=== PATIENT | male | born 1945 | race Caucasian/White ===

== ENCOUNTER 2018-07-26 19:05 | Observation (INO) ==
[2018-07-26] MEDS ORDERED: MethylPREDNISolone Sod Succinate Inj 125 MG/2 ML Vial IV.PUSH ONE (19:12)
[2018-07-26 19:31] LABS: Baso # (Auto) 0.1 th/mm3 (0.0-0.2); Baso % (Auto) 1.7 % (0.0-2.0); Eos # (Auto) 0.3 th/mm3 (0.0-0.4); Eos % (Auto) 6.3 % (0.0-4.0); Hematocrit 38.2 % (39.0-51.0); Lymph % (Auto) 18.1 % (9.0-44.0); Mean Corpuscular HGB Conc 34.1 % (32.0-36.0); Mean Corpuscular Hemoglobin 34.4 pg (27.0-34.0); Mean Corpuscular Volume 100.9 fL (80.0-100.0); Mean Platelet Volume 9.5 fL (7.0-11.0); Mono # (Auto) 0.2 th/mm3 (0.0-0.9); Mono % (Auto) 3.8 % (0.0-8.0); Neut # (Auto) 3.8 th/mm3 (1.8-7.7); Neut % (Auto) 70.1 % (16.0-70.0); Platelet Count 173 th/mm3 (150-450); Red Blood Count 3.78 mil/mm3 (4.50-5.90); Red Cell Distribution Width 12.8 % (11.6-17.2); White Blood Count 5.4 th/mm3 (4.0-11.0)
--- NOTE | 2018-07-26 19:33 | XR ---
EXAM DATE: 07/26/2018 7:28 PM EST AGE/SEX: 72 years / Male INDICATIONS: Dyspnea. CLINICAL DATA: This is the patient's sequela encounter. Patient reports that signs and symptoms have been present for 3 days and indicates a pain score of 2/10. MEDICAL/SURGICAL HISTORY: . Chronic obstructive pulmonary disease. Carcinoma, prostatic. None. COMPARISON: [facility], CHEST 2V PA&LAT, 07/25/2018. . FINDINGS: Single AP view of the chest. The lungs are clear. Cardiomediastinal silhouette within nor mal limits. No evidence of pleural effusion or pneumothorax. CONCLUSION: No acute cardiopulmonary disease identified. Electronically signed by: Isac Zafar MD Board Certified Radiologist 07/26/2018 7:31 PM EST
[2018-07-26 19:38] LABS: Chloride 106 meq/L (98-107); Potassium 3.6 meq/L (3.5-5.1); Sodium 139 meq/L (136-145)
[2018-07-26 19:41] LABS: Calcium 8.2 mg/dL (8.5-10.1)
[2018-07-26 19:42] LABS: Albumin 3.5 g/dL (3.4-5.0); Anion Gap 6 meq/L (5-15); Blood Urea Nitrogen 16 mg/dL (7-18); Carbon Dioxide 26.9 meq/L (21.0-32.0); Glucose,Random 127 mg/dL (74-106)
[2018-07-26 19:45] LABS: Alanine Aminotransferase 24 U/L (12-78); Aspartate Aminotransferase 19 U/L (15-37); Glomerular Filtration Rate Greater Than 89 mL/min (>89)
[2018-07-26 19:47] LABS: Total Protein 6.9 g/dL (6.4-8.2)
[2018-07-26 19:48] LABS: Alkaline Phosphatase 89 U/L (45-117)
[2018-07-26] MEDS ORDERED: Famotidine PF Inj 20 MG/2 ML Vial IV.PUSH ONE (20:00)
[2018-07-26 20:15] VITALS: RESP 20
--- NOTE | 2018-07-26 20:17 | ED ---
HPI General Chief complaint: Respiratory Symptoms Stated complaint: SOB Time Seen by Provider: 07/26/18 19:10 Source: patient, family, EMS, RN notes reviewed and old records reviewed Mode of arrival: EMS Limitations: physical limitation History of Present Illness HPI narrative: 72-year-old male presents emerged from complaining of shortness of breath, worse over the past 2 days, associated with pruritic urticarial rash , history of COPD. Some cough but nonproductive. No fevers. Well before the onset of the symptoms. Was in the emergency department yesterday, was treated for COPD exacerbation, worsening symptoms today. Symptoms are moderately severe , persistent, unrelieved despite outpatient treatment. Related Data Home Medications Medication Instructions Recorded Confirmed Vantas 07/25/18 07/25/18 albuterol sulfate 1 dose INHALATION Q6HR PRN 07/25/18 07/26/18 albuterol sulfate [Ventolin HFA] 2 puff INHALATION BID 07/25/18 07/26/18 azelastine 1 spray INTRANASAL Q12H 07/25/18 07/26/18 budesonide-formoterol [Symbicort] 2 puff INHALATION BID 07/25/18 07/26/18 cyanocobalamin (vitamin B-12) 07/25/18 07/25/18 [Vitamin B-12] fexofenadine [Guerita Allergy] 1 tab PO DAILY 07/25/18 07/26/18 fluticasone 2 spray INTRANASAL HS 07/25/18 07/26/18 ipratropium bromide 1 dose INHALATION Q6H PRN 07/25/18 07/26/18 omeprazole 1 cap PO DAILY 07/25/18 07/26/18 Nyquil 07/26/18 diphenhydramine HCl [Benadryl] 25 mg PO Q4H PRN 07/26/18 07/26/18 guaifenesin [Mucinex] 600 mg PO Q12H PRN 07/26/18 07/26/18 Previous Rx's Medication Instructions Recorded triamcinolone acetonide 1 applic TOPICAL BID #30 g 07/25/18 Allergies Allergy/AdvReac Type Severity Reaction Status Date / Time Iodinated Contrast- Oral and Allergy Mild unknwon Verified 07/26/18 19:22 IV Dye Review of Systems ROS: all other systems reviewed are negative [facility] Medical History Medical History COPD (chronic obstructive pulmonary disease) (Acute) Hemorrhoids (Acute) Prostate cancer (Acute) Surgical History Surgical History History of appendectomy (Acute) Social History Social History Substance History: No History of Abuse Second Hand Smoke Exposure: No Smoking Status: Former smoker How Often Do You Have a Drink Containing Alcohol: 4 or more times a week Immunization History Tetanus Immunization: Unsure Exam Narrative Exam Narrative: GENERAL: 72-year-old man, moderate respiratory distress, speaks in 2-3 word sentences, anxious appearing. SKIN: Focused skin assessment warm/dry. Blanching urticarial rash coalescing on the trunk, extremities, back. HEAD: Atraumatic. Normocephalic. EYES: Pupils equal and round. No scleral icterus. No injection or drainage. ENT: No nasal bleeding or discharge. Mucous membranes pink and moist. NECK: Trachea midline. No JVD. CARDIOVASCULAR: Regular rate and rhythm. No murmur appreciated. RESPIRATORY: Moderate respiratory distress. Accessory muscle use. Moderate diffuse wheezing. Good air movement. GASTROINTESTINAL: Abdomen soft, non-tender, nondistended. Hepatic and splenic margins not palpable. MUSCULOSKELETAL: No obvious deformities. No edema. NEUROLOGICAL: Awake and alert. No obvious cranial nerve deficits. Motor grossly within normal limits. Normal speech. PSYCHIATRIC: Anxious appearing. Course Initial Documented Vital Signs Pulse Oximetry 95 07/26/18 19:10 Last Documented Vital Signs Pulse Rate 77 07/26/18 20:41 Respiratory Rate 20 07/26/18 20:41 Blood Pressure 142/90 H 07/26/18 20:41 Pulse Oximetry 98 07/26/18 20:41 Medical Decision Making MDM Narrative Medical decision making narrative: 72-year-old man, presents emerge department with respiratory distress wheezing and urticarial rash. Likely COPD exacerbation triggered by allergic reaction, but circumstances are a little bit unclear. Rash was worsening, given the respiratory distress was moderate, we did make the decision to give him a dose of epinephrine, continue antihistamines. He was given steroids and bronchodilators. He will also be given dose of antibiotics. We will plan on admission to the hospital. Medical Screen Exam Complete: Yes Emergency Medical Condition: Yes Lab Data Lab results reviewed: Yes I reviewed the patient's lab results. Result diagrams: 07/26/18 19:15 07/26/18 19:15 Lab Results 07/26/18 07/26/18 07/26/18 Range/Units 19:15 19:15 19:15 CBC w Diff Auto diff final WBC 5.4 (4.0-11.0) th/mm3 RBC 3.78 L (4.50-5.90) mil/mm3 Hgb 13.0 (13.0-17.0) gm/dL Hct 38.2 L (39.0-51.0) % MCV 100.9 H (80.0-100.0) fL MCH 34.4 H (27.0-34.0) pg MCHC 34.1 (32.0-36.0) % RDW 12.8 (11.6-17.2) % Plt Count 173 (150-450) th/mm3 MPV 9.5 (7.0-11.0) fL Neut % (Auto) 70.1 H (16.0-70.0) % Lymph % (Auto) 18.1 (9.0-44.0) % [place] % (Auto) 3.8 (0.0-8.0) % Eos % (Auto) 6.3 H (0.0-4.0) % Baso % (Auto) 1.7 (0.0-2.0) % Neut # (Auto) 3.8 (1.8-7.7) th/mm3 Lymph # (Auto) 1.0 (1.0-4.8) th/mm3 [place] # (Auto) 0.2 (0.0-0.9) th/mm3 Eos # (Auto) 0.3 (0.0-0.4) th/mm3 Baso # (Auto) 0.1 (0.0-0.2) th/mm3 WBC Differential . Differential Comment . Sodium 139 (136-145) meq/L Potassium 3.6 (3.5-5.1) meq/L Chloride 106 (98-107) meq/L Carbon Dioxide 26.9 (21.0-32.0) meq/L Anion Gap 6 (5-15) meq/L BUN 16 (7-18) mg/dL Creatinine 0.83 (0.60-1.30) mg/dL Estimated GFR Greater than 89 (>89) mL/min Random Glucose 127 H (74-106) mg/dL Calcium 8.2 L (8.5-10.1) mg/dL Total Bilirubin 0.5 (0.2-1.0) mg/dL AST 19 (15-37) U/L ALT 24 (12-78) U/L Alkaline Phosphatase 89 (45-117) U/L Troponin I Less than 0.02 L (0.02-0.05) ng/mL B-Natriuretic Peptide 79 (0-100) pg/mL Total Protein 6.9 (6.4-8.2) g/dL Albumin 3.5 (3.4-5.0) g/dL Imaging Data Radiologist's impression: Chest X-Ray 07/26/18 19:12 CONCLUSION: No acute cardiopulmonary disease identified. Negative. ECG Data Attestation: I personally reviewed and interpreted this ECG as follows: Discharge Plan Discharge Disposition Patient Disposition: ED Admit(ED Internal Use Only) Discharge Order Discharge Orders: ED Use Only Admit Order (Routine); Ordered 07/26/18 Ordered By: Dionisio Johansen Physicians Team ED Provider: Dionisio Johansen Primary Care Provider: Jose Howard Attending Provider: Miriam Ignacio Discharge Interventions Interventions: Vital Signs Last Done: 07/26/18 20:14 Status ED Status: Admitted Observation Patient
[2018-07-26] MEDS ORDERED: Bisacodyl 10 MG Supp RECTAL PRN (20:32)
[2018-07-26] MEDS ORDERED: Acetaminophen 325 MG Tablet PO PRN (20:32)
[2018-07-26] MEDS: Senna/Docusate Sodium 8.6/50 MG Tablet PO SCH (23:53)
[2018-07-26] MEDS: guaiFENesin 600 MG ER Tablet PO SCH (23:53)
[2018-07-26] MEDS: Budesonide-Formoterol 160/4.5 MCG 6 GM Inhaler INH SCH (23:54)
[2018-07-27] MEDS: MethylPREDNISolone Sod Succinate Inj 40 MG/ML Vial IV.PUSH SCH ×4 (00:30→15:56)
[2018-07-27 06:56] LABS: Baso % (Auto) 0.3 % (0.0-2.0); Hematocrit 38.1 % (39.0-51.0); Hemoglobin 12.7 gm/dL (13.0-17.0); Lymph # (Auto) 0.3 th/mm3 (1.0-4.8); Lymph % (Auto) 8.1 % (9.0-44.0); Mean Corpuscular HGB Conc 33.4 % (32.0-36.0); Mean Corpuscular Hemoglobin 34.5 pg (27.0-34.0); Mean Corpuscular Volume 103.2 fL (80.0-100.0); Mean Platelet Volume 9.8 fL (7.0-11.0); Mono % (Auto) 0.3 % (0.0-8.0); Neut # (Auto) 3.6 th/mm3 (1.8-7.7); Neut % (Auto) 91.3 % (16.0-70.0); Platelet Count 157 th/mm3 (150-450); Red Blood Count 3.69 mil/mm3 (4.50-5.90); Red Cell Distribution Width 13.3 % (11.6-17.2); White Blood Count 3.9 th/mm3 (4.0-11.0)
[2018-07-27 07:00] LABS: Chloride 104 meq/L (98-107); Sodium 138 meq/L (136-145)
[2018-07-27 07:07] LABS: Calcium 8.7 mg/dL (8.5-10.1)
[2018-07-27 07:08] LABS: Albumin 3.4 g/dL (3.4-5.0); Anion Gap 11 meq/L (5-15); Blood Urea Nitrogen 13 mg/dL (7-18); Carbon Dioxide 23.1 meq/L (21.0-32.0); Glucose,Random 225 mg/dL (74-106)
[2018-07-27 07:11] LABS: Alanine Aminotransferase 22 U/L (12-78); Aspartate Aminotransferase 12 U/L (15-37); Glomerular Filtration Rate 75 mL/min (>89)
[2018-07-27 07:12] LABS: Total Protein 6.9 g/dL (6.4-8.2)
[2018-07-27 07:14] LABS: Alkaline Phosphatase 82 U/L (45-117)
[2018-07-27] MEDS: Budesonide-Formoterol 160/4.5 MCG 6 GM Inhaler INH SCH (09:01)
[2018-07-27] MEDS: Senna/Docusate Sodium 8.6/50 MG Tablet PO SCH (09:02)
[2018-07-27] MEDS: guaiFENesin 600 MG ER Tablet PO SCH (09:03)
--- NOTE | 2018-07-27 13:12 | P.HPIM ---
History of Present Illness Primary Care Physician: Jose Howard MD Chief Complaint: Shortness of breath, wheeze History of Present Illness: 72-year-old male with known history of chronic obstructive pulmonary disease who presented to the hospital for evaluation of continued shortness of breath, dyspnea. Patient states that his symptoms started roughly 4 days ago after he was going up and down into the attic putting his Sherron decorations away. Shortly after that he started having significant shortness of breath, wheeze, rash. He was using his nebulizer and Symbicort at home. Indicates that he is using his Symbicort more than it was directed. His breathing did not improve so he came to the emergency department on 07/25/18 and was evaluated that approximate 11:30 in the morning. Patient was taken care of by the ER physician and the patient was given Benadryl 25 mg IV, workup was unremarkable. It was indicated that the patient was reevaluated and he stated that he is ready to go home. He is instructed to use Benadryl 25-50 mg [id number] as needed and triamcinolone cream. The patient did go home and he indicates that he was very tired after the Benadryl and he went to bed that night and did not wake up until the afternoon. The patient got up to try to get some eat but started having shortness of breath, dyspnea, rash again so he came back to the emergency department at approximately 8 PM last night. Patient was given Solu- Medrol, bronchodilators and dose of antibiotics emergency department and ER physician recommended that the patient be admitted to the hospital for further evaluation and management. Upon seeing the patient's morning he is sitting up in bed, he does not require any oxygen, he denies any wheezing or any shortness of breath. States that the rash is almost completely resolved. Patient denies any chest pain, cough, congestion, dyspnea, abdominal pain, nausea, vomiting. Review of Systems Review of Systems: all other systems reviewed are negative Respiratory: Reports wheezing Skin/Breast: Reports change in pigmentation and Reports pruritus PMFSH Medical History Medical History COPD (chronic obstructive pulmonary disease) (Acute) Hemorrhoids (Acute) Prostate cancer (Acute) Surgical History Surgical History History of hernia repair (Acute) History of appendectomy (Acute) Social History Social History Substance History: No History of Abuse Second Hand Smoke Exposure: No Smoking Status: Former smoker Number of Pack-Years (if former smoker): 10 How Often Do You Have a Drink Containing Alcohol: Monthly or less Immunization History Tetanus Immunization: Unsure Medications and Allergies Allergies Allergy/AdvReac Type Severity Reaction Status Date / Time Iodinated Contrast- Oral and Allergy Mild unknwon Verified 07/26/18 19:22 IV Dye Home Medications Medication Instructions Recorded Confirmed Type Vantas 07/25/18 07/25/18 History albuterol sulfate 1 dose INHALATION Q6HR PRN 07/25/18 07/26/18 History albuterol sulfate [Ventolin HFA] 2 puff INHALATION BID 07/25/18 07/26/18 History azelastine 1 spray INTRANASAL Q12H 07/25/18 07/26/18 History budesonide-formoterol [Symbicort] 2 puff INHALATION BID 07/25/18 07/26/18 History cyanocobalamin (vitamin B-12) 07/25/18 07/25/18 History [Vitamin B-12] fexofenadine [Guerita Allergy] 1 tab PO DAILY 07/25/18 07/26/18 History fluticasone 2 spray INTRANASAL HS 07/25/18 07/26/18 History ipratropium bromide 1 dose INHALATION Q6H PRN 07/25/18 07/26/18 History omeprazole 1 cap PO DAILY 07/25/18 07/26/18 History Nyquil 07/26/18 History diphenhydramine HCl [Benadryl] 25 mg PO Q4H PRN 07/26/18 07/26/18 History guaifenesin [Mucinex] 600 mg PO Q12H PRN 07/26/18 07/26/18 History Active Medications: Active Medications Acetaminophen (Tylenol) 650 mg PO Q4H PRN PRN Reason: Temp > 100.4 Al Hydroxide/Mg Hydroxide (Milk Of Magnesia Liq) 30 ml PO Q12H PRN PRN Reason: Mild Constipation Albuterol (Duoneb Neb (Prn)) 1 ampul NEB Q4HR NEB PRN PRN Reason: SOB/WHEEZING Last Admin: 07/27/18 09:36 Dose: 1 ampul Bisacodyl (Dulcolax Supp) 10 mg RECTAL DAILY PRN PRN Reason: SEVERE CONSITIPATION Budesonide/Formoterol Fumarate (Symbicort 160/4.5 Mcg Inh) 2 puff INH BID [facility] Last Admin: 07/27/18 09:01 Dose: Not Given Diphenhydramine HCl (Benadryl Inj) 25 mg IV.PUSH Q4H PRN PRN Reason: ITCHING/RASH Last Admin: 07/27/18 10:27 Dose: 25 mg Guaifenesin (Mucinex Er) 600 mg PO BID [facility] Last Admin: 07/27/18 09:03 Dose: 600 mg Lactulose (Lactulose Liq) 30 ml PO DAILY PRN PRN Reason: SEVERE CONSITIPATION Methylprednisolone Sodium Succinate (Solumedrol Inj) 40 mg IV.PUSH Q6H [facility] Last Admin: 07/27/18 10:27 Dose: 40 mg Ondansetron HCl (Zofran Inj) 4 mg IV.PUSH Q6H PRN PRN Reason: NAUSEA OR VOMITING Senna/Docusate Sodium (Roxann-Colace) 1 tab PO BID [facility] Last Admin: 07/27/18 09:02 Dose: Not Given Sennosides (Senokot) 17.2 mg PO Q12H PRN PRN Reason: Moderate Constipation Sodium Chloride (Ns Flush) 2 ml IV.FLUSH BID [facility] Last Admin: 07/27/18 09:03 Dose: 2 ml Sodium Chloride (Ns Flush) 2 ml IV.FLUSH PRN PRN PRN Reason: FLUSH AFTER USING IV ACCESS Physical Exam Vital signs: Last Vital Signs Temp 96.8 F L 07/27/18 08:00 Pulse 83 07/27/18 08:00 Resp 20 07/27/18 08:00 BP 179/98 H 07/27/18 08:00 Pulse Ox 93 L 07/27/18 08:00 Intake & Output 07/25/18 07/26/18 07/27/18 07/28/18 06:59 06:59 06:59 06:59 Intake Total 360 / 360 Balance 360 / 360 Weight 72.3 kg Narrative: GENERAL: Well-developed, well-nourished, in no acute distress. alert and orientated HEENT: Head is normocephalic without any lesions or masses noted. Facial features are symmetric. Eyes: Pupils equal round reactive to light. Extraocular muscles are intact. Conjunctivae were clear. Oropharyngeal: Pharynx without any erythema edema. Tongue is midline without deviation. Buccal mucosa is moist without any masses or lesions NECK: Supple without any masses. Trachea midline no deviation. No JVD, no bruits are appreciated CARDIAC: Regular rhythm, regular rate. S1/S2 are heard. No murmurs gallops or rubs. LUNGS: Clear to auscultation bilaterally. No wheeze, rhonchi or rales. No use of accessory muscles on inspiration or expiration. ABDOMEN: Soft, nontender. Nondistended. Bowel sounds heard in all 4 quadrants. No organomegaly or masses. Negative rebound, negative guarding EXTREMITIES: No edema, pulses are equal bilaterally. No cyanosis or clubbing NEUROLOGY: Mood and affect appear appropriate. Cranial nerves II through XII grossly intact. Muscle strength 5/5 in upper and lower extremities bilaterally. Deep tendon reflexes are 2+ in upper and lower extremities bilaterally. SKIN: Patient does have a few areas on his back, thighs of macular areas, however there are no raised areas or any wheels noted. Results Labs CBC & Chem 7: 07/27/18 06:15 07/27/18 06:15 Imaging Impressions Chest X-Ray 07/26/18 19:12 CONCLUSION: No acute cardiopulmonary disease identified. Caprini VTE Risk Assessment Caprini VTE Risk Assessment: Moderate/High Risk (score >= 2) Caprini Risk Assessment Model: Point Value = 1 Point Value = 2 Point Value = 3 Point Value = 5 Age 41-60 Minor surgery BMI > 25 kg/m2 Swollen legs Varicose veins or History of unexplained or recurrent spontaneous Oral contraceptives or hormone replacement Sepsis (< 1 month) Serious lung disease, including pneumonia (< 1 month) Abnormal pulmonary function Acute myocardial infarction Congestive heart failure (< 1 month) History of inflammatory bowel disease Medical patient at bed rest Age 61-74 Arthroscopic surgery Major open surgery (> 45 min) Laparoscopic surgery (> 45 min) Malignancy Confined to bed (> 72 hours) Immobilizing plaster cast Central venous access Age >= 75 History of VTE Family history of VTE Factor V Leiden Prothrombin [id number] Lupus anticoagulant Anticardiolipin antibodies Elevated serum homocysteine Heparin-induced thrombocytopenia Other congenital or acquired thrombophilia Stroke (< 1 month) Elective arthroplasty Hip, pelvis, or leg fracture Acute spinal cord injury (< 1 month) Prophylaxis Regimen: Total Risk Factor Score Risk Level Prophylaxis Regimen 0-1 Low Early ambulation 2 Moderate Order ONE of the following: *Sequential Compression Device (SCD) *Heparin 5000 units SQ BID 3-4 Higher Order ONE of the following medications: *Heparin 5000 units SQ TID *Enoxaparin/Lovenox 40 mg SQ daily (WT < 150 kg, CrCl > 30 mL/min) *Enoxaparin/Lovenox 30 mg SQ daily (WT < 150 kg, CrCl > 10-29 mL/min) *Enoxaparin/Lovenox 30 mg SQ BID (WT < 150 kg, CrCl > 30 mL/min) AND/OR *Sequential Compression Device (SCD) 5 or more Highest Order ONE of the following medications: *Heparin 5000 units SQ TID (Preferred with Epidurals) *Enoxaparin/Lovenox 40 mg SQ daily (WT < 150 kg, CrCl > 30 mL/min) *Enoxaparin/Lovenox 30 mg SQ daily (WT < 150 kg, CrCl > 10-29 mL/min) *Enoxaparin/Lovenox 30 mg SQ BID (WT < 150 kg, CrCl > 30 mL/min) AND *Sequential Compression Device (SCD) Assessment and Plan Plan Chronic obstructive pulmonary disease, exacerbation, resolved Patient not requiring any oxygen this time to maintain O2 saturations Patient continued on Solu-Medrol 40 mg IV every 6 hours Patient continued on Symbicort 2 inhalations twice daily Urticaria, unknown etiology, resolved Status post Pepcid, epinephrine, Benadryl, Solu-Medrol Patient continued on Solu-Medrol We will continue Benadryl, Zantac DVT prevention Sequential compression devices Discharge Planning: Discharge home in stable condition Activity: Ad hanna. Diet: Regular diet Medication per medication reconciliation Follow-up with primary medical doctor in 1 week H&P: Quality VTE Deep Vein Thrombosis/Pulmonary Embolism Present on Admission: No
[2018-07-27 13:15] VITALS: BP 157/79; PULSE 67; TEMP 98.5; O2SAT 95
== END 2018-07-27 16:04 | disposition home or self-care (01) ==
LOC: PHEDA 19:05 → PHED 19:05 → PHEDA 21:38 → PH3 21:50
PROVIDERS: ADMIT Internal Medicine; ATTEND Internal Medicine
DX: K64.9 Unspecified hemorrhoids; J44.1 Chronic obstructive pulmonary disease with (acute) exacerbation; Z79.51 Long term (current) use of inhaled steroids; Z87.891 Personal history of nicotine dependence; Z90.49 Acquired absence of other specified parts of digestive tract; L50.9 Urticaria, unspecified; C61 Malignant neoplasm of prostate
CPT/HCPCS: 71010; 71045; 80053; 83520; 83880; 84484; 85025; 87275; 87276; 87804; 90772; 90774; 90775; 94640; 94664; 94665; 96372; 96374; 96375; 96376; 99285; C8952; G0378; J0171; J1200; J2920; J2930